=== PATIENT | female | born 1945 | race Native Hawaiian/Other Pacific Islander ===

== ENCOUNTER 2016-10-04 14:45 | Outpatient (CLI) | payer OTHER ==
[~2016-10-04 14:45] MED LIST: ALBU90AE13 INH; ALPR0.2566 PO; APRODINE1 TAB PO; ASPIRIN CHLD81 MG PO; ATEN25TA21 PO; BLACK COHOSH540 MG PO; CELEXA20 MG PO; CETI10TA PO; COZAAR25 MG PO; GABA100C2 PO; MECLIZINE25 MG PO; VITAMIN D31000 UNIT PO
== END 2016-10-04 15:45 | disposition home or self-care (01) ==
LOC: RESP 14:45
DX: R06.09 Other forms of dyspnea (principal)
CPT/HCPCS: 94640; 94664

== ENCOUNTER 2016-10-22 15:03 | Emergency (ER) | payer OTHER ==
[~2016-10-22] VITALS: Ht 172.7 cm; Wt 93.0 kg
[2016-10-22 15:20] VITALS: BP 125/59; TEMP 98.4
== END 2016-10-22 17:25 | disposition home or self-care (01) ==
LOC: ED 15:03
DX: S80.12XA Contusion of left lower leg, initial encounter (principal); S80.02XA Contusion of left knee, initial encounter; S90.02XA Contusion of left ankle, initial encounter; W18.39XA Other fall on same level, initial encounter; Y92.098 Other place in other non-institutional residence as the place of occurrence of the external cause
CPT/HCPCS: 99283

== ENCOUNTER 2016-11-21 08:45 | Observation (INO) | payer OTHER ==
[~2016-11-21] VITALS: Ht 172.7 cm; Wt 92.2 kg
[2016-11-21] VITALS (7 sets, daily range): BP systolic 124–161; BP diastolic 62–88; TEMP 98–98.5; Ht 172.7 cm; Wt 92.2 kg
[2016-11-21] MEDS ORDERED: ANORO ELLIPTA 61 AER IN (09:04)
[2016-11-21 09:25] LABS: PLATELET COUNT 124 K/uL (152-353)
[2016-11-21 09:39] LABS: POTASSIUM 4.5 mmol/L (3.6-5.2); SODIUM 135 mmol/L (136-145)
[2016-11-22 00:18] VITALS: BP 151/85; TEMP 98.2
[2016-11-22 04:00] VITALS: BP 148/78; TEMP 97.6
[2016-11-22 08:03] VITALS: BP 142/70; TEMP 97.7
[2016-11-22 09:08] LABS: PLATELET COUNT 107 K/uL (152-353)
[2016-11-22 09:26] LABS: POTASSIUM 4.6 mmol/L (3.6-5.2)
[2016-11-22 12:00] VITALS: BP 148/74; TEMP 98.7
[2016-11-22 16:00] VITALS: BP 148/74; TEMP 98.7
[2016-11-22 19:54] VITALS: BP 148/78; TEMP 98.7
[2016-11-23] VITALS: BP 175/84; TEMP 98.2
[2016-11-23 04:00] VITALS: BP 164/78; TEMP 97.8
[2016-11-23 05:03] LABS: PLATELET COUNT 110 K/uL (152-353)
[2016-11-23 05:07] LABS: POTASSIUM 5.1 mmol/L (3.6-5.2)
[2016-11-23 07:25] VITALS: BP 171/85; TEMP 97.7
[2016-11-23 11:34] VITALS: BP 127/72; TEMP 98.2
== END 2016-11-23 12:35 | disposition home or self-care (01) ==
LOC: ED 08:45 → MED/SURG 10:55
PROVIDERS: Emergency Medicine; ADMIT Emergency Medicine
DX: J44.1 Chronic obstructive pulmonary disease with (acute) exacerbation (principal); D72.828 Other elevated white blood cell count; R06.09 Other forms of dyspnea
CPT/HCPCS: 36415; 36600; 80053; 82550; 82805; 83735; 83880; 84484; 85027; 87040; 87804; 93005; 94640; 94664; 94760; 96365; 96366; 96367; 96372; 96374; 96375; 99220; 99284; G0378; J1650; J1956; J2930; J3475

== ENCOUNTER 2016-12-12 12:04 | Emergency (ER) | payer OTHER ==
[~2016-12-12] VITALS: Ht 172.7 cm; Wt 98.9 kg
[~2016-12-12 12:04] MED LIST changes: +ANORO ELLIPTA 61 AER IN
[2016-12-12 13:29] LABS: PLATELET COUNT 92 K/uL (152-353)
[2016-12-12 13:37] LABS: POTASSIUM 4.8 mmol/L (3.6-5.2)
[2016-12-12 20:09] VITALS: BP 130/70; TEMP 98.1
== END 2016-12-12 19:42 | disposition short-term general hospital (02) ==
LOC: ED 12:04
PROVIDERS: Emergency Medicine
PROC: 0T9B70Z Drainage of Bladder with Drainage Device, Via Natural or Artificial Opening (ICD-10-PCS; principal; 2016-12-12)
DX: S72.142A Displaced intertrochanteric fracture of left femur, initial encounter for closed fracture (principal); W18.39XA Other fall on same level, initial encounter; Y92.098 Other place in other non-institutional residence as the place of occurrence of the external cause
CPT/HCPCS: 36415; 51702; 80053; 81000; 85027; 96360; 96376; 99284; J1170; J2405

== ENCOUNTER 2017-01-22 11:34 | Emergency (ER) | payer OTHER ==
[~2017-01-22] VITALS: Ht 172.7 cm; Wt 95.3 kg
[2017-01-22 11:37] VITALS: TEMP 97.6
[2017-01-22] MEDS ORDERED: NEURONTIN 100M100 MG OR (12:02)
[2017-01-22] MEDS ORDERED: ELIQUIS2.5 MG OR (12:03)
[2017-01-22 14:14] VITALS: BP 102/50
== END 2017-01-22 14:14 | disposition short-term general hospital (02) ==
LOC: ED 11:34
DX: S82.844A Nondisplaced bimalleolar fracture of right lower leg, initial encounter for closed fracture (principal); W17.89XA Other fall from one level to another, initial encounter; Y92.098 Other place in other non-institutional residence as the place of occurrence of the external cause
CPT/HCPCS: 99284

== ENCOUNTER 2017-01-22 14:21 | Outpatient (CLI) | payer OTHER ==
[~2017-01-22 14:21] MED LIST changes: +ELIQUIS2.5 MG OR; +NEURONTIN 100M100 MG OR
== END 2017-01-22 14:55 | disposition short-term general hospital (02) ==
LOC: AMB 14:21
DX: S82.844A Nondisplaced bimalleolar fracture of right lower leg, initial encounter for closed fracture (principal); W17.89XA Other fall from one level to another, initial encounter; Y92.098 Other place in other non-institutional residence as the place of occurrence of the external cause
CPT/HCPCS: A0425; A0429

== ENCOUNTER 2017-06-28 08:52 | Outpatient (CLI) | payer OTHER ==
[2017-06-28 09:26] LABS: POTASSIUM 5.2 mmol/L (3.6-5.2)
== END 2017-06-28 09:55 | disposition home or self-care (01) ==
LOC: LABW 08:52
PROVIDERS: Internal Medicine Cardiovascular Disease
DX: I25.89 Other forms of chronic ischemic heart disease (principal); R06.09 Other forms of dyspnea
CPT/HCPCS: 36415; 80048; 83880

== ENCOUNTER 2017-07-19 10:04 | Emergency (ER) | payer OTHER ==
[~2017-07-19] VITALS: Ht 172.7 cm; Wt 93.9 kg
[2017-07-19 12:10] VITALS: BP 134/69; TEMP 97.9
== END 2017-07-19 12:10 | disposition home or self-care (01) ==
LOC: ED 10:04
DX: J44.1 Chronic obstructive pulmonary disease with (acute) exacerbation (principal)
CPT/HCPCS: 94664; 99283

== ENCOUNTER 2017-09-10 09:40 | Outpatient (CLI) | payer OTHER | END 2017-09-10 19:16 | disposition home or self-care (01) | LOC: MAMMO 09:40 | DX: Z12.31 Encounter for screening mammogram for malignant neoplasm of breast (principal) ==

== ENCOUNTER → 2018-02-17 09:47 | Outpatient (CLI) | payer OTHER ==
[~2018-02-17 09:47] MED LIST changes: +ASPIRIN LOW DOS81 M1 PO; +DOCU100C10 PO; +LISI10TA11 PO; -NEURONTIN 100M100 MG OR; +NEURONTIN 100M100 MG PO; +VITAMIN D32000 UNI1 PO; +ZINC40OI11 TOP
== END | disposition short-term general hospital (02) ==
LOC: AMB 09:47
DX: R41.82 Altered mental status, unspecified (principal)
CPT/HCPCS: A0425; A0429

== ENCOUNTER 2018-02-17 09:55 | Inpatient (IN) | payer OTHER ==
[2018-02-17] VITALS (13 sets, daily range): BP systolic 118–187; BP diastolic 58–98; TEMP 97–99.6; Ht 172.7 cm; Wt 83.7 kg
[~2018-02-17] VITALS: Ht 172.7 cm; Wt 83.7 kg
[2018-02-17 10:38] LABS: PLATELET COUNT 148 K/uL (152-353)
[2018-02-17 11:02] LABS: POTASSIUM 3.1 mmol/L (3.6-5.2)
[2018-02-17 11:06] LABS: PARTIAL THROMBOPLASTIN TIME 25.9 SECONDS (24.5-33.6)
[2018-02-18] VITALS (24 sets, daily range): BP systolic 116–180; BP diastolic 8–103; TEMP 98.3–99.9
[2018-02-18 06:48] LABS: POTASSIUM 3.1 mmol/L (3.6-5.2)
[2018-02-18 07:08] LABS: PLATELET COUNT 161 K/uL (152-353)
[2018-02-19] VITALS (23 sets, daily range): BP systolic 113–169; BP diastolic 51–91; TEMP 98–99.2
[2018-02-19 05:03] LABS: PLATELET COUNT 151 K/uL (152-353)
[2018-02-19 05:19] LABS: POTASSIUM 3.7 mmol/L (3.6-5.2)
[2018-02-20] VITALS (22 sets, daily range): BP systolic 109–194; BP diastolic 53–95; TEMP 98.5–99.9
[2018-02-20 10:29] LABS: PLATELET COUNT 168 K/uL (152-353)
[2018-02-21] VITALS (25 sets, daily range): BP systolic 86–157; BP diastolic 45–88; TEMP 98–100.1
[2018-02-21 08:11] LABS: POTASSIUM 4.3 mmol/L (3.6-5.2)
[2018-02-21 09:14] LABS: PLATELET COUNT 203 K/uL (152-353)
[2018-02-22] VITALS (22 sets, daily range): BP systolic 100–143; BP diastolic 53–79; TEMP 98.7–99.1
[2018-02-22 07:51] LABS: PLATELET COUNT 214 K/uL (152-353)
[2018-02-22 08:29] LABS: POTASSIUM 4.3 mmol/L (3.6-5.2)
[2018-02-23] VITALS (24 sets, daily range): BP systolic 15–164; BP diastolic 50–92; TEMP 98.4–99.5
[2018-02-23 09:03] LABS: PLATELET COUNT 303 K/uL (152-353)
[2018-02-23 09:15] LABS: POTASSIUM 4.8 mmol/L (3.6-5.2)
[2018-02-24] VITALS (25 sets, daily range): BP systolic 92–148; BP diastolic 54–97; TEMP 98.3–98.8
[2018-02-24 06:16] LABS: PLATELET COUNT 296 K/uL (152-353)
[2018-02-24 06:33] LABS: POTASSIUM 4.2 mmol/L (3.6-5.2)
[2018-02-25] VITALS (21 sets, daily range): BP systolic 100–140; BP diastolic 58–81; TEMP 97.6–98.4
[2018-02-25 05:38] LABS: PLATELET COUNT 301 K/uL (152-353)
[2018-02-25 05:59] LABS: POTASSIUM 4.4 mmol/L (3.6-5.2)
[2018-02-26] VITALS (12 sets, daily range): BP systolic 110–138; BP diastolic 55–71; TEMP 98.2–99.4
[2018-02-26 07:04] LABS: PLATELET COUNT 337 K/uL (152-353)
[2018-02-26 08:57] LABS: POTASSIUM 4.1 mmol/L (3.6-5.2)
[2018-02-27] VITALS: BP 120/63; TEMP 98.6
== END 2018-02-27 15:15 | DRG 64 ==
LOC: ED 09:55 → ICU 13:25 → MED/SURG 02-26 18:30
PROVIDERS: Emergency Medicine
DX: I63.531 Cerebral infarction due to unspecified occlusion or stenosis of right posterior cerebral artery (principal); J96.00 Acute respiratory failure, unspecified whether with hypoxia or hypercapnia; N39.0 Urinary tract infection, site not specified; E87.1 Hypo-osmolality and hyponatremia; S82.291A Other fracture of shaft of right tibia, initial encounter for closed fracture; I12.9 Hypertensive chronic kidney disease with stage 1 through stage 4 chronic kidney disease, or unspecified chronic kidney disease; N18.2 Chronic kidney disease, stage 2 (mild); K21.9 Gastro-esophageal reflux disease without esophagitis; J44.9 Chronic obstructive pulmonary disease, unspecified
CPT/HCPCS: 36415; 36600; 51702; 80053; 81000; 82272; 82805; 82962; 83735; 84484; 85027; 85379; 85610; 85730; 87088; 93005; 94640; 94664; 94760; 96365; 96366; 96372; 99285; J0132; J0696; J1650; J2060; J3490

== ENCOUNTER 2018-02-27 15:07 | Inpatient (IN) | payer OTHER ==
[2018-02-28 05:01] LABS: PLATELET COUNT 268 K/uL (152-353)
[2018-02-28 05:14] LABS: POTASSIUM 4.7 mmol/L (3.6-5.2)
== END 2018-03-01 08:55 | disposition still patient (30) ==
LOC: PAVB 15:07
PROVIDERS: ADMIT Internal Medicine
DX: I63.531 Cerebral infarction due to unspecified occlusion or stenosis of right posterior cerebral artery (principal); J96.21 Acute and chronic respiratory failure with hypoxia; M62.81 Muscle weakness (generalized); R26.89 Other abnormalities of gait and mobility; R13.11 Dysphagia, oral phase; R48.9 Unspecified symbolic dysfunctions; S82.101A Unspecified fracture of upper end of right tibia, initial encounter for closed fracture; R26.81 Unsteadiness on feet; J44.9 Chronic obstructive pulmonary disease, unspecified; S82.401A Unspecified fracture of shaft of right fibula, initial encounter for closed fracture
CPT/HCPCS: 80053; 81000; 82306; 85027; 87081; 87088

== ENCOUNTER 2018-03-01 09:49 | Inpatient (IN) | payer OTHER | END 2018-03-31 15:01 | disposition still patient (30) | LOC: PAVB 09:49 | PROVIDERS: ADMIT Internal Medicine | DX: I63.531 Cerebral infarction due to unspecified occlusion or stenosis of right posterior cerebral artery (principal); S82.401A Unspecified fracture of shaft of right fibula, initial encounter for closed fracture; S82.101A Unspecified fracture of upper end of right tibia, initial encounter for closed fracture; M62.81 Muscle weakness (generalized); R13.11 Dysphagia, oral phase; R26.81 Unsteadiness on feet; R26.89 Other abnormalities of gait and mobility; I10 Essential (primary) hypertension; J44.9 Chronic obstructive pulmonary disease, unspecified | CPT/HCPCS: 36415; 81000; 85610 ==

== ENCOUNTER 2018-03-01 10:47 | Outpatient (CLI) | payer OTHER | END 2018-03-01 19:25 | disposition home or self-care (01) | LOC: RAD 10:47 | DX: R53.83 Other fatigue (principal); Z86.73 Personal history of transient ischemic attack (TIA), and cerebral infarction without residual deficits ==

== ENCOUNTER 2018-03-31 15:49 | Inpatient (IN) | payer OTHER | END 2018-05-01 08:00 | disposition still patient (30) | LOC: PAVB 15:49 | PROVIDERS: ADMIT Internal Medicine | DX: I63.531 Cerebral infarction due to unspecified occlusion or stenosis of right posterior cerebral artery (principal); S82.401A Unspecified fracture of shaft of right fibula, initial encounter for closed fracture; S82.101A Unspecified fracture of upper end of right tibia, initial encounter for closed fracture; M62.81 Muscle weakness (generalized); R13.11 Dysphagia, oral phase; R26.81 Unsteadiness on feet; R26.89 Other abnormalities of gait and mobility; I10 Essential (primary) hypertension; J44.9 Chronic obstructive pulmonary disease, unspecified | CPT/HCPCS: 85610; 87070; 87077; 87185; 87186 ==

== ENCOUNTER 2018-05-01 09:00 | Inpatient (IN) | payer OTHER | END 2018-06-01 10:20 | disposition still patient (30) | LOC: PAVB 09:00 | PROVIDERS: ADMIT Internal Medicine | DX: I63.531 Cerebral infarction due to unspecified occlusion or stenosis of right posterior cerebral artery (principal); S82.401A Unspecified fracture of shaft of right fibula, initial encounter for closed fracture; S82.101A Unspecified fracture of upper end of right tibia, initial encounter for closed fracture; M62.81 Muscle weakness (generalized); R13.11 Dysphagia, oral phase; R26.81 Unsteadiness on feet; R26.89 Other abnormalities of gait and mobility; I10 Essential (primary) hypertension; J44.9 Chronic obstructive pulmonary disease, unspecified | CPT/HCPCS: 85610 ==

== ENCOUNTER 2018-05-08 21:32 | Outpatient (CLI) | payer OTHER | END 2018-05-08 22:42 | disposition home or self-care (01) | LOC: LAB 21:32 | DX: N39.0 Urinary tract infection, site not specified (principal) | CPT/HCPCS: 81000; 87077; 87086; 87088; 87186 ==

== ENCOUNTER 2018-05-26 16:13 | Outpatient (CLI) | payer OTHER | END 2018-05-26 19:14 | disposition home or self-care (01) | LOC: RAD 16:13 | DX: M79.671 Pain in right foot (principal) ==

== ENCOUNTER 2018-05-27 06:31 | Outpatient (CLI) | payer OTHER | END 2018-05-27 20:36 | disposition home or self-care (01) | LOC: LAB 06:31 | DX: N39.0 Urinary tract infection, site not specified (principal) | CPT/HCPCS: 81000; 87077; 87086; 87088; 87186 ==

== ENCOUNTER 2018-06-01 10:28 | Inpatient (IN) | payer OTHER | END 2018-07-01 09:36 | disposition still patient (30) | LOC: PAVB 10:28 | PROVIDERS: ADMIT Internal Medicine ==

== ENCOUNTER 2018-06-03 07:52 | Outpatient (CLI) | payer OTHER | END 2018-06-03 19:13 | disposition home or self-care (01) | LOC: LAB 07:52 | DX: Z79.899 Other long term (current) drug therapy (principal); Z79.01 Long term (current) use of anticoagulants | CPT/HCPCS: 85610 ==

== ENCOUNTER 2018-07-01 12:19 | Inpatient (IN) | payer OTHER | END 2018-08-01 08:50 | disposition still patient (30) | LOC: PAVB 12:19 | PROVIDERS: ADMIT Internal Medicine ==

== ENCOUNTER 2018-07-04 05:45 | Outpatient (CLI) | payer OTHER | END 2018-07-04 20:30 | disposition home or self-care (01) | LOC: LAB 05:45 | DX: Z79.899 Other long term (current) drug therapy (principal); R79.1 Abnormal coagulation profile | CPT/HCPCS: 36415; 85610 ==

== ENCOUNTER 2018-07-19 07:26 | Outpatient (CLI) | payer OTHER ==
[2018-07-19 10:13] LABS: PLATELET COUNT 174 K/uL (152-353)
[2018-07-19 10:21] LABS: POTASSIUM 4.7 mmol/L (3.6-5.2)
== END 2018-07-19 20:13 | disposition home or self-care (01) ==
LOC: LAB 07:26
PROVIDERS: Internal Medicine
DX: D53.9 Nutritional anemia, unspecified (principal); N18.9 Chronic kidney disease, unspecified
CPT/HCPCS: 36415; 80048; 82607; 82746; 82747; 85027

== ENCOUNTER 2018-08-01 09:13 | Inpatient (IN) | payer OTHER ==
[2018-08-11] MEDS ORDERED: CEFD300C2 PO (03:55)
[2018-08-11] MEDS ORDERED: ALBUSOL INH (03:56)
[2018-08-11] MEDS ORDERED: [UNRECOGNIZED DRUG - OTHER] PO (03:58)
[2018-08-11] MEDS ORDERED: OMEP40CA PO (04:01)
[2018-08-11] MEDS ORDERED: MULTIVITAMI1 PO (04:07)
[2018-08-11] MEDS ORDERED: PANTOPRAZOLE 40MG TA PO (04:10)
[2018-08-11] MEDS ORDERED: ASCO500T18 PO (04:12)
[2018-08-11] MEDS ORDERED: VITAMIN D2000 UNI1 PO (04:14)
[2018-08-11] MEDS ORDERED: WARF2TAB7 PO (04:15)
[2018-08-11] MEDS ORDERED: CLARITIN10 M1 PO (04:17)
[2018-08-11] MEDS ORDERED: PAIN/FEVER120 MG RE (04:19)
[2018-08-11] MEDS ORDERED: ONDA4TAB3 PO (04:20)
[2018-08-11] MEDS ORDERED: PROAIR HFA INH (04:25)
[2018-08-11] MEDS ORDERED: TRAM50TA PO (04:26)
[2018-08-11] MEDS ORDERED: GAS-X PO (04:30)
[2018-08-11] MEDS ORDERED: MECLIZINE 2525 MG PO (04:32)
== END 2018-08-31 08:35 | disposition still patient (30) ==
LOC: PAVB 09:13
PROVIDERS: ADMIT Internal Medicine
CPT/HCPCS: 93005

== ENCOUNTER 2018-08-03 08:06 | Outpatient (CLI) | payer OTHER | END 2018-08-03 19:28 | disposition home or self-care (01) | LOC: LAB 08:06 | DX: R82.90 Unspecified abnormal findings in urine (principal); R35.0 Frequency of micturition | CPT/HCPCS: 81000; 87077; 87086; 87088; 87186 ==

== ENCOUNTER 2018-08-05 06:52 | Outpatient (CLI) | payer OTHER ==
[2018-08-05 08:44] LABS: PLATELET COUNT 142 K/uL (152-353)
[2018-08-05 08:58] LABS: POTASSIUM 5.5 mmol/L (3.6-5.2)
== END 2018-08-05 19:17 | disposition home or self-care (01) ==
LOC: LAB 06:52
PROVIDERS: Internal Medicine
DX: N39.0 Urinary tract infection, site not specified (principal); R79.1 Abnormal coagulation profile; Z79.899 Other long term (current) drug therapy
CPT/HCPCS: 80053; 82306; 85027; 85610

== ENCOUNTER 2018-08-08 10:43 | Outpatient (CLI) | payer OTHER | END 2018-08-08 20:13 | disposition home or self-care (01) | LOC: RAD 10:43 | DX: M19.90 Unspecified osteoarthritis, unspecified site (principal); Z78.0 Asymptomatic menopausal state; R50.9 Fever, unspecified ==

== ENCOUNTER 2018-08-09 00:03 | Outpatient (CLI) | payer OTHER ==
[2018-08-09 00:39] LABS: PLATELET COUNT 220 K/uL (152-353)
[2018-08-09 00:50] LABS: POTASSIUM 4.7 mmol/L (3.6-5.2)
== END 2018-08-09 19:44 | disposition home or self-care (01) ==
LOC: LAB 00:03
PROVIDERS: Internal Medicine
DX: R53.1 Weakness (principal); G25.0 Essential tremor; M54.5 Low back pain
CPT/HCPCS: 80053; 85027

== ENCOUNTER 2018-08-09 10:20 | Outpatient (CLI) | payer OTHER | END 2018-08-09 19:48 | disposition home or self-care (01) | LOC: RAD 10:20 | DX: K31.89 Other diseases of stomach and duodenum (principal) | CPT/HCPCS: 74022 ==

== ENCOUNTER 2018-08-10 15:01 | Inpatient (IN) | payer OTHER ==
[~2018-08-10] VITALS: Ht 172.7 cm; Wt 85.4 kg
[2018-08-10] VITALS (7 sets, daily range): BP systolic 108–126; BP diastolic 51–66; TEMP 97.7
[2018-08-10 16:23] LABS: PLATELET COUNT 231 K/uL (152-353)
[2018-08-10 16:33] LABS: POTASSIUM 4.4 mmol/L (3.6-5.2); SODIUM 139 mmol/L (136-145)
--- NOTE | 2018-08-10 21:43 | NUR ---
RECEIVED FROM ER VIA STRETCHER. ALERT AND ORIENTED X3. DAUGHTER AT BEDSIDE. EDUCATION GIVEN REGARDING CALL LIGHT AND BED CONTROLS. INSTRUCTED TO KEEP BED IN LOW POSITION. PATIENT VERBALIZED UNDERSTANDING. 20G SALINE LOCK TO LAC INTACT. SEE ASSESSMENT FOR FURTHER DETAILS.
[2018-08-11 01:13] VITALS: BP 110/56; TEMP 98.1; Ht 172.7 cm; Wt 85.4 kg
[2018-08-11] MEDS ORDERED: CEFD300C2 PO (03:55)
[2018-08-11] MEDS ORDERED: ALBUSOL INH (03:56)
[2018-08-11] MEDS ORDERED: [UNRECOGNIZED DRUG - OTHER] PO (03:58)
[2018-08-11] MEDS ORDERED: OMEP40CA PO (04:01)
[2018-08-11] MEDS ORDERED: MULTIVITAMI1 PO (04:07)
[2018-08-11] MEDS ORDERED: PANTOPRAZOLE 40MG TA PO (04:10)
[2018-08-11] MEDS ORDERED: ASCO500T18 PO (04:12)
[2018-08-11 04:14] VITALS: BP 115/66; TEMP 98.3
[2018-08-11] MEDS ORDERED: VITAMIN D2000 UNI1 PO (04:14)
[2018-08-11] MEDS ORDERED: WARF2TAB7 PO (04:15)
[2018-08-11] MEDS ORDERED: CLARITIN10 M1 PO (04:17)
[2018-08-11] MEDS ORDERED: PAIN/FEVER120 MG RE (04:19)
[2018-08-11] MEDS ORDERED: ONDA4TAB3 PO (04:20)
[2018-08-11] MEDS ORDERED: PROAIR HFA INH (04:25)
[2018-08-11] MEDS ORDERED: TRAM50TA PO (04:26)
[2018-08-11] MEDS ORDERED: GAS-X PO (04:30)
[2018-08-11] MEDS ORDERED: MECLIZINE 2525 MG PO (04:32)
[2018-08-11 08:03] VITALS: BP 123/52; TEMP 98.9
[2018-08-11 16:03] VITALS: BP 119/74; TEMP 98.2
[2018-08-11 20:21] VITALS: BP 137/56; TEMP 98.4
[2018-08-12] VITALS: BP 126/69; TEMP 98.6
[2018-08-12 04:00] VITALS: BP 145/70; TEMP 98.8
[2018-08-12 06:06] LABS: PLATELET COUNT 251 K/uL (152-353)
[2018-08-12 06:39] LABS: POTASSIUM 4.3 mmol/L (3.6-5.2)
[2018-08-12 08:00] VITALS: BP 135/77; TEMP 98.2
[2018-08-12 12:00] VITALS: BP 144/84; TEMP 98.5
[2018-08-12 16:00] VITALS: BP 135/72; TEMP 98.4
[2018-08-12 20:00] VITALS: BP 127/64; TEMP 98.5
[2018-08-13] VITALS: BP 131/66; TEMP 98.8
[2018-08-13 04:00] VITALS: BP 129/68; TEMP 98.6
[2018-08-13 08:00] VITALS: BP 140/78; TEMP 97.5
== END 2018-08-13 16:45 | DRG 189 ==
LOC: ED 15:01 → MED/SURG 17:35
PROVIDERS: Internal Medicine; ADMIT Family Medicine
DX: J96.01 Acute respiratory failure with hypoxia (principal); J44.0 Chronic obstructive pulmonary disease with (acute) lower respiratory infection; J44.1 Chronic obstructive pulmonary disease with (acute) exacerbation; F02.81 Dementia in other diseases classified elsewhere, unspecified severity, with behavioral disturbance; N39.0 Urinary tract infection, site not specified; J20.9 Acute bronchitis, unspecified; G30.8 Other Alzheimer's disease; D53.9 Nutritional anemia, unspecified
CPT/HCPCS: 36415; 80048; 80053; 82550; 82553; 83880; 84484; 85027; 93005; 94640; 94664; 94760; 96365; 99284; J0456; J0696; J2930

== ENCOUNTER 2018-08-31 08:44 | Inpatient (IN) | payer OTHER ==
[~2018-08-31 08:44] MED LIST changes: +ALBUSOL INH; +ASCO500T18 PO; +CEFD300C2 PO; +CLARITIN10 M1 PO; +GAS-X PO; +MECLIZINE 2525 MG PO; +MULTIVITAMI1 PO; +OMEP40CA PO; +ONDA4TAB3 PO; +PAIN/FEVER120 MG RE; +PANTOPRAZOLE 40MG TA PO; +PROAIR HFA INH; +TRAM50TA PO; +VITAMIN D2000 UNI1 PO; +WARF2TAB7 PO; +[UNRECOGNIZED DRUG - OTHER] PO
== END 2018-10-01 11:07 | disposition still patient (30) ==
LOC: PAVB 08:44
PROVIDERS: ADMIT Internal Medicine

== ENCOUNTER 2018-09-02 06:41 | Outpatient (CLI) | payer OTHER | END 2018-09-02 20:26 | disposition home or self-care (01) | LOC: LAB 06:41 | DX: Z79.899 Other long term (current) drug therapy (principal); R79.1 Abnormal coagulation profile | CPT/HCPCS: 85610 ==

== ENCOUNTER 2018-09-03 14:11 | Outpatient (CLI) | payer OTHER ==
[2018-09-03 14:38] LABS: PLATELET COUNT 245 K/uL (152-353)
[2018-09-03 14:47] LABS: POTASSIUM 4.3 mmol/L (3.6-5.2)
== END 2018-09-03 21:31 | disposition home or self-care (01) ==
LOC: LAB 14:11
PROVIDERS: Internal Medicine
DX: R50.9 Fever, unspecified (principal); R05 Cough
CPT/HCPCS: 80048; 85027

== ENCOUNTER 2018-10-01 11:35 | Inpatient (IN) | payer OTHER | END 2018-11-01 10:55 | disposition still patient (30) | LOC: PAVB 11:35 | PROVIDERS: ADMIT Internal Medicine ==

== ENCOUNTER 2018-10-02 06:29 | Outpatient (CLI) | payer OTHER | END 2018-10-02 21:31 | disposition home or self-care (01) | LOC: LAB 06:29 | DX: Z79.899 Other long term (current) drug therapy (principal); R79.1 Abnormal coagulation profile | CPT/HCPCS: 85610 ==

== ENCOUNTER 2018-11-01 11:20 | Inpatient (IN) | payer OTHER | END 2018-11-29 10:20 | disposition still patient (30) | LOC: PAVB 11:20 | PROVIDERS: ADMIT Internal Medicine ==

== ENCOUNTER 2018-11-04 08:56 | Outpatient (CLI) | payer OTHER | END 2018-11-04 20:48 | disposition home or self-care (01) | LOC: LAB 08:56 | DX: Z79.01 Long term (current) use of anticoagulants (principal); Z51.81 Encounter for therapeutic drug level monitoring | CPT/HCPCS: 36415; 85610 ==

== ENCOUNTER 2018-11-29 11:17 | Inpatient (IN) | payer OTHER | END 2018-12-30 10:40 | disposition still patient (30) | LOC: PAVB 11:17 | PROVIDERS: ADMIT Internal Medicine ==

== ENCOUNTER 2018-12-02 06:52 | Outpatient (CLI) | payer OTHER | END 2018-12-02 21:44 | disposition other institution (70) | LOC: LAB 06:52 | DX: Z79.899 Other long term (current) drug therapy (principal); Z79.01 Long term (current) use of anticoagulants | CPT/HCPCS: 85610 ==

== ENCOUNTER 2018-12-05 17:51 | Outpatient (CLI) | payer OTHER | END 2018-12-05 20:00 | disposition home or self-care (01) | LOC: RAD 17:51 | DX: M25.531 Pain in right wrist (principal); M25.511 Pain in right shoulder ==

== ENCOUNTER 2018-12-30 11:28 | Inpatient (IN) | payer OTHER | END 2019-01-29 11:18 | disposition still patient (30) | LOC: PAVB 11:28 | PROVIDERS: ADMIT Internal Medicine ==

== ENCOUNTER 2019-01-01 06:44 | Outpatient (CLI) | payer OTHER | END 2019-01-01 19:40 | disposition home or self-care (01) | LOC: LAB 06:44 | DX: Z79.899 Other long term (current) drug therapy (principal); R79.1 Abnormal coagulation profile | CPT/HCPCS: 36415; 85610 ==

== ENCOUNTER 2019-01-12 11:48 | Emergency (ER) | payer OTHER ==
[~2019-01-12] VITALS: Ht 172.7 cm; Wt 85.3 kg
[2019-01-12 11:55] VITALS: TEMP 97.3
[2019-01-12 12:30] LABS: PLATELET COUNT 197 K/uL (152-353)
[2019-01-12 12:40] LABS: POTASSIUM 5.9 mmol/L (3.6-5.2)
[2019-01-12 18:04] VITALS: BP 102/53
== END 2019-01-12 18:54 | disposition short-term general hospital (02) ==
LOC: ED 11:48
PROVIDERS: Family Medicine
DX: K56.600 Partial intestinal obstruction, unspecified as to cause (principal); R11.2 Nausea with vomiting, unspecified; N28.89 Other specified disorders of kidney and ureter; Z93.3 Colostomy status
CPT/HCPCS: 80053; 81000; 85027; 87086; 87088; 96360; 96375; 96376; 99284; J2405; J2550

== ENCOUNTER 2019-01-29 12:30 | Inpatient (IN) | payer OTHER | END 2019-03-01 08:39 | disposition still patient (30) | LOC: PAVB 12:30 | PROVIDERS: ADMIT Internal Medicine | DX: Z51.89 Encounter for other specified aftercare (principal) | CPT/HCPCS: 80053; 82306; 85027; 85610 ==

== ENCOUNTER 2019-01-30 06:23 | Outpatient (CLI) | payer OTHER ==
[2019-01-30 07:00] LABS: PLATELET COUNT 201 K/uL (152-353)
[2019-01-30 08:03] LABS: POTASSIUM 4.8 mmol/L (3.6-5.2)
== END 2019-01-30 19:46 | disposition home or self-care (01) ==
LOC: LAB 06:23
PROVIDERS: Internal Medicine
DX: I10 Essential (primary) hypertension (principal); Z79.899 Other long term (current) drug therapy; I63.89 Other cerebral infarction
CPT/HCPCS: 80053; 82306; 85027; 85610

== ENCOUNTER 2019-01-31 07:05 | Outpatient (CLI) | payer OTHER ==
[~2019-01-31] VITALS: Ht 172.7 cm; Wt 90.3 kg
== END 2019-02-01 17:30 | disposition home or self-care (01) ==
LOC: INF 07:05 → MED/SURG 07:05 → EDSTATUS 13:21 → INF 19:57
PROC: 30233N1 Transfusion of Nonautologous Red Blood Cells into Peripheral Vein, Percutaneous Approach (ICD-10-PCS; principal; 2019-01-31)
PROC: 30233N1 Transfusion of Nonautologous Red Blood Cells into Peripheral Vein, Percutaneous Approach (ICD-10-PCS; 2019-02-01)
DX: D64.9 Anemia, unspecified (principal)
CPT/HCPCS: 36430; 86850; 86900; 86901; 86922; 96374; 96376; J1940; P9016

== ENCOUNTER 2019-02-01 23:13 | Outpatient (CLI) | payer OTHER | END 2019-02-01 23:55 | disposition home or self-care (01) | LOC: LAB 23:13 | DX: E87.71 Transfusion associated circulatory overload (principal) | CPT/HCPCS: 85014; 85018 ==

== ENCOUNTER 2019-03-01 09:35 | Inpatient (IN) | payer OTHER | END 2019-03-31 09:38 | disposition still patient (30) | LOC: PAVB 09:35 | PROVIDERS: ADMIT Internal Medicine ==

== ENCOUNTER 2019-03-04 05:11 | Outpatient (CLI) | payer OTHER | END 2019-03-04 19:12 | disposition home or self-care (01) | LOC: LAB 05:11 | DX: Z51.81 Encounter for therapeutic drug level monitoring (principal) | CPT/HCPCS: 85610 ==

== ENCOUNTER 2019-03-10 06:12 | Outpatient (CLI) | payer OTHER | END 2019-03-10 19:15 | disposition home or self-care (01) | LOC: LAB 06:12 | DX: R25.2 Cramp and spasm (principal) | CPT/HCPCS: 84132 ==

== ENCOUNTER 2019-03-31 11:31 | Inpatient (IN) | payer OTHER | END 2019-05-01 10:36 | disposition still patient (30) | LOC: PAVB 11:31 | PROVIDERS: ADMIT Internal Medicine ==

== ENCOUNTER 2019-04-01 05:30 | Outpatient (CLI) | payer OTHER | END 2019-04-01 19:07 | disposition home or self-care (01) | LOC: LAB 05:30 | DX: Z51.81 Encounter for therapeutic drug level monitoring (principal) | CPT/HCPCS: 85610 ==

== ENCOUNTER 2019-04-10 05:15 | Outpatient (CLI) | payer OTHER ==
[2019-04-10 06:37] LABS: PLATELET COUNT 145 K/uL (152-353)
[2019-04-10 06:49] LABS: POTASSIUM 4.5 mmol/L (3.6-5.2)
[2019-04-10 06:54] LABS: PARTIAL THROMBOPLASTIN TIME 25.2 SECONDS (24.5-33.6)
== END 2019-04-10 23:41 | disposition home or self-care (01) ==
LOC: LAB 05:15
PROVIDERS: Internal Medicine
DX: Z01.818 Encounter for other preprocedural examination (principal); Z51.81 Encounter for therapeutic drug level monitoring
CPT/HCPCS: 36415; 80053; 85027; 85610; 85730

== ENCOUNTER 2019-04-21 06:19 | Outpatient (CLI) | payer OTHER | END 2019-04-21 21:37 | disposition home or self-care (01) | LOC: LAB 06:19 | DX: Z51.81 Encounter for therapeutic drug level monitoring (principal) | CPT/HCPCS: 36415; 85610 ==

== ENCOUNTER 2019-05-01 11:24 | Inpatient (IN) | payer OTHER | END 2019-06-01 16:27 | disposition still patient (30) | LOC: PAVB 11:24 | PROVIDERS: ADMIT Internal Medicine ==

== ENCOUNTER 2019-05-02 07:28 | Outpatient (CLI) | payer OTHER | END 2019-05-02 21:36 | disposition home or self-care (01) | LOC: LAB 07:28 | DX: Z51.81 Encounter for therapeutic drug level monitoring (principal) | CPT/HCPCS: 36415; 85610 ==

== ENCOUNTER 2019-06-01 17:13 | Inpatient (IN) | payer OTHER | END 2019-07-01 09:22 | disposition still patient (30) | LOC: PAVB 17:13 | PROVIDERS: ADMIT Internal Medicine ==

== ENCOUNTER 2019-06-03 07:37 | Outpatient (CLI) | payer OTHER | END 2019-06-03 22:48 | disposition home or self-care (01) | LOC: LAB 07:37 | DX: Z79.899 Other long term (current) drug therapy (principal); Z79.01 Long term (current) use of anticoagulants | CPT/HCPCS: 85610 ==

== ENCOUNTER 2019-07-01 11:09 | Inpatient (IN) | payer OTHER | END 2019-08-01 11:11 | disposition still patient (30) | LOC: PAVB 11:09 | PROVIDERS: ADMIT Internal Medicine ==

== ENCOUNTER 2019-07-02 12:28 | Outpatient (CLI) | payer OTHER ==
[2019-07-02 12:58] LABS: PLATELET COUNT 186 K/uL (152-353)
== END 2019-07-02 23:45 | disposition home or self-care (01) ==
LOC: LAB 12:28
PROVIDERS: Internal Medicine
DX: Z79.899 Other long term (current) drug therapy (principal); Z51.81 Encounter for therapeutic drug level monitoring; R53.83 Other fatigue
CPT/HCPCS: 85027; 85610

== ENCOUNTER 2019-08-01 11:41 | Inpatient (IN) | payer OTHER | END 2019-08-31 08:00 | disposition still patient (30) | LOC: PAVB 11:41 | PROVIDERS: ADMIT Internal Medicine ==

== ENCOUNTER 2019-08-06 04:43 | Inpatient (IN) | payer OTHER ==
[~2019-08-06] VITALS: Ht 172.7 cm; Wt 95.0 kg
[2019-08-06 06:50] LABS: PLATELET COUNT 142 K/uL (152-353)
[2019-08-06 07:11] LABS: POTASSIUM 4.7 mmol/L (3.6-5.2)
[2019-08-06 12:00] VITALS: BP 146/57; TEMP 98.4
--- NOTE | 2019-08-06 13:00 | NUR ---
REPORT FROM JOSE RAUL DARDEN LPN @1245 @1300 PT ADMITTED TO ROOM 1114, BROUGHT TO FLOOR FROM [facility] BY W/C ACCOMPANIED BY STAFF, PT IS FULLY DRESSED, WEARING NASAL CANNULA WITH O2@2L, PT HAD NO C/O AT THIS TIME, COLOSTOMY TO RLQ ABDOMEN CLEAN, DRY AND INTACT, NO STOOL IN BAG, PT IS PLEASANT, COOPERATIVE, HARD OF HEARING AND HAS A VISION IMPAIRMENT, NO REDNESS OR BREAKDOWN TO SKIN. PT IS HERE FOR BLOOD TRANSFUSION. SR UP X2, BED IN LOW POSITION, O2@2L NC HOOKED UP TO PATIENT. PT RESTING QUIETLY IN BED. @1615 IV STARTED TO LEFT WRIST 20G X1 STICK, PT TOLERATED WELL @1630 1ST UNIT OF PRBC STARTED, VITAL SIGNS WNL, CHARTED ON BLOOD SHEET
[2019-08-06 16:00] VITALS: BP 128/58; TEMP 98.2
[2019-08-06 18:12] VITALS: BP 146/57; TEMP 98.4; Ht 172.7 cm; Wt 95.0 kg
[2019-08-06 20:00] VITALS: BP 132/67; TEMP 98.7
[2019-08-07] VITALS: BP 133/63; TEMP 98.5
[2019-08-07 04:00] VITALS: BP 138/68; TEMP 98.1
[2019-08-07 08:00] VITALS: BP 111/60; BP 138/78; TEMP 97.8; TEMP 98.2
[2019-08-07 12:00] VITALS: BP 150/72; TEMP 97.9
--- NOTE | 2019-08-07 12:33 | NUR ---
REPORT CALLED TO DARREN CARRILLO AT THIS TIME. IV D/C WITH TIP INTACT. NAD NOTED.
== END 2019-08-07 12:45 | DRG 812 ==
LOC: LAB 04:43 → MED/SURG 12:54
PROVIDERS: ADMIT Internal Medicine
PROC: 30233N1 Transfusion of Nonautologous Red Blood Cells into Peripheral Vein, Percutaneous Approach (ICD-10-PCS; principal; 2019-08-06)
PROC: 30233N1 Transfusion of Nonautologous Red Blood Cells into Peripheral Vein, Percutaneous Approach (ICD-10-PCS; 2019-08-07)
DX: D64.89 Other specified anemias (principal); K92.2 Gastrointestinal hemorrhage, unspecified; I12.0 Hypertensive chronic kidney disease with stage 5 chronic kidney disease or end stage renal disease; N18.5 Chronic kidney disease, stage 5; Z86.73 Personal history of transient ischemic attack (TIA), and cerebral infarction without residual deficits; J44.9 Chronic obstructive pulmonary disease, unspecified; R53.1 Weakness; E87.71 Transfusion associated circulatory overload
CPT/HCPCS: 80053; 82272; 82306; 85014; 85018; 85027; 85610; 86850; 86900; 86901; 86922; 94664; 94760; J1940; P9016

== ENCOUNTER 2019-08-07 19:42 | Outpatient (CLI) | payer OTHER | END 2019-08-07 20:38 | disposition home or self-care (01) | LOC: LAB 19:42 | DX: E87.71 Transfusion associated circulatory overload (principal); D64.89 Other specified anemias | CPT/HCPCS: 85014; 85018 ==

== ENCOUNTER 2019-08-14 04:43 | Outpatient (CLI) | payer OTHER ==
[2019-08-14 05:39] LABS: PLATELET COUNT 121 K/uL (152-353)
[2019-08-14 06:04] LABS: PARTIAL THROMBOPLASTIN TIME 32.1 SECONDS (24.5-33.6)
== END 2019-08-14 19:48 | disposition home or self-care (01) ==
LOC: LAB 04:43
PROVIDERS: Internal Medicine
DX: Z51.81 Encounter for therapeutic drug level monitoring (principal); Z01.818 Encounter for other preprocedural examination; J44.9 Chronic obstructive pulmonary disease, unspecified
CPT/HCPCS: 80053; 85027; 85610; 85730; 93005; 94664

== ENCOUNTER 2019-08-14 08:38 | Day surgery (SDC) | payer OTHER ==
[~2019-08-14] VITALS: Ht 30.5 cm; Wt 0.5 kg
== END 2019-08-14 14:30 ==
LOC: OR 08:38
PROC: 0DB68ZZ Excision of Stomach, Via Natural or Artificial Opening Endoscopic (ICD-10-PCS; principal; 2019-08-14)
PROC: 0D738ZZ Dilation of Lower Esophagus, Via Natural or Artificial Opening Endoscopic (ICD-10-PCS; 2019-08-14)
DX: K29.50 Unspecified chronic gastritis without bleeding (principal); K22.2 Esophageal obstruction; R13.19 Other dysphagia; K20.8 Other esophagitis; K44.9 Diaphragmatic hernia without obstruction or gangrene; Z51.81 Encounter for therapeutic drug level monitoring; Z01.818 Encounter for other preprocedural examination; J44.9 Chronic obstructive pulmonary disease, unspecified
CPT/HCPCS: 80053; 85027; 85610; 85730; 93005; 94664; J2001; J2704

== ENCOUNTER 2019-08-18 06:02 | Outpatient (CLI) | payer OTHER | END 2019-08-18 21:12 | disposition home or self-care (01) | LOC: LAB 06:02 | DX: Z51.81 Encounter for therapeutic drug level monitoring (principal) | CPT/HCPCS: 85610 ==

== ENCOUNTER 2019-08-31 11:11 | Inpatient (IN) | payer OTHER | END 2019-10-01 08:35 | disposition still patient (30) | LOC: PAVB 11:11 | PROVIDERS: ADMIT Internal Medicine ==

== ENCOUNTER 2019-09-03 04:56 | Outpatient (CLI) | payer OTHER | END 2019-09-03 20:43 | disposition home or self-care (01) | LOC: LAB 04:56 | DX: Z51.81 Encounter for therapeutic drug level monitoring (principal) | CPT/HCPCS: 36415; 85610 ==

== ENCOUNTER 2019-10-01 08:57 | Inpatient (IN) | payer OTHER | END 2019-11-01 09:57 | disposition still patient (30) | LOC: PAVB 08:57 | PROVIDERS: ADMIT Internal Medicine ==

== ENCOUNTER 2019-10-06 04:35 | Outpatient (CLI) | payer OTHER | END 2019-10-06 22:29 | disposition home or self-care (01) | LOC: LAB 04:35 | DX: D75.89 Other specified diseases of blood and blood-forming organs (principal); Z79.899 Other long term (current) drug therapy; Z79.01 Long term (current) use of anticoagulants | CPT/HCPCS: 85610 ==

== ENCOUNTER 2019-11-01 10:41 | Inpatient (IN) | payer OTHER ==
--- NOTE | 2019-11-24 11:08 | NUR ---
PATIENT ADMITTED AT 1050 FROM [place]. PATIENT HAD N/V ON ADMISSION 30CC YELLOW VOMIT. MD NOTIFIED. PATIENT STABLE WHEN ENTERED ROOM. RESP EVEN/UNLABORED. 25CC LOOSE YELLOW/BROWN BOWEL NOTED TO COLOSTOMY BAG WITH HERNIA BEHIND STOMA SITE. NG TUBE PLACED PER MD ORDER. 22G PLACED TO LEFT FOREARM.
[2019-11-25] MEDS ORDERED: ALLEGRA ALRG180 M1 PO ×2 (04:32)
[2019-11-25] MEDS ORDERED: CELEXA10 MG PO ×2 (04:34)
[2019-11-25] MEDS ORDERED: ALEN70TA19 PO ×2 (04:39)
[2019-11-25] MEDS ORDERED: MONT10TA PO ×2 (04:44)
[2019-11-25] MEDS ORDERED: CALCIUM 600+D31 TA2 PO ×2 (04:50)
[2019-11-25] MEDS ORDERED: NEURONTIN 100M100 MG PO ×2 (04:52)
[2019-11-25] MEDS ORDERED: PRESERVISION AREDS 2 PO ×2 (04:54)
[2019-11-25] MEDS ORDERED: OMEP40CA PO ×2 (04:57)
[2019-11-25] MEDS ORDERED: TYLENOL325 MG PR (05:03)
[2019-11-25] MEDS ORDERED: TYLENOL325 MG PO ×3 (05:05→05:07)
[2019-11-25] MEDS ORDERED: AZO CRANBERY UR1 CAP PO ×2 (05:37)
== END 2019-11-30 13:16 | disposition still patient (30) ==
LOC: PAVB 10:41
PROVIDERS: ADMIT Internal Medicine

== ENCOUNTER 2019-11-04 06:35 | Outpatient (CLI) | payer OTHER | END 2019-11-04 22:17 | disposition home or self-care (01) | LOC: LAB 06:35 | DX: Z51.81 Encounter for therapeutic drug level monitoring (principal) | CPT/HCPCS: 85610 ==

== ENCOUNTER 2019-11-22 11:23 | Emergency (ER) | payer OTHER ==
[~2019-11-22] VITALS: Ht 172.7 cm; Wt 94.8 kg
[2019-11-22 11:28] VITALS: TEMP 98.4
[2019-11-22 12:17] LABS: PLATELET COUNT 187 K/uL (152-353)
[2019-11-22 12:33] LABS: POTASSIUM 6.2 mmol/L (3.6-5.2)
[2019-11-22 15:38] LABS: POTASSIUM 5.5 mmol/L (3.6-5.2)
[2019-11-22 17:00] VITALS: BP 143/60
[2019-11-25] MEDS ORDERED: ALLEGRA ALRG180 M1 PO (04:32)
[2019-11-25] MEDS ORDERED: CELEXA10 MG PO (04:34)
[2019-11-25] MEDS ORDERED: ALEN70TA19 PO (04:39)
[2019-11-25] MEDS ORDERED: MONT10TA PO (04:44)
[2019-11-25] MEDS ORDERED: CALCIUM 600+D31 TA2 PO (04:50)
[2019-11-25] MEDS ORDERED: NEURONTIN 100M100 MG PO (04:52)
[2019-11-25] MEDS ORDERED: PRESERVISION AREDS 2 PO (04:54)
[2019-11-25] MEDS ORDERED: OMEP40CA PO (04:57)
[2019-11-25] MEDS ORDERED: TYLENOL325 MG PO ×2 (05:05→05:07)
[2019-11-25] MEDS ORDERED: AZO CRANBERY UR1 CAP PO (05:37)
== END 2019-11-22 17:00 | disposition home or self-care (01) ==
LOC: ED 11:23
PROVIDERS: Emergency Medicine
DX: E87.5 Hyperkalemia (principal); R10.84 Generalized abdominal pain; R11.2 Nausea with vomiting, unspecified; Z93.3 Colostomy status
CPT/HCPCS: 80048; 80053; 82150; 82962; 83690; 85027; 96360; 96375; 99284; J1815; J2405; J7060

== ENCOUNTER 2019-11-23 17:18 | Outpatient (CLI) | payer OTHER ==
[2019-11-25] MEDS ORDERED: ALLEGRA ALRG180 M1 PO (04:32)
[2019-11-25] MEDS ORDERED: CELEXA10 MG PO (04:34)
[2019-11-25] MEDS ORDERED: ALEN70TA19 PO (04:39)
[2019-11-25] MEDS ORDERED: MONT10TA PO (04:44)
[2019-11-25] MEDS ORDERED: CALCIUM 600+D31 TA2 PO (04:50)
[2019-11-25] MEDS ORDERED: NEURONTIN 100M100 MG PO (04:52)
[2019-11-25] MEDS ORDERED: PRESERVISION AREDS 2 PO (04:54)
[2019-11-25] MEDS ORDERED: OMEP40CA PO (04:57)
[2019-11-25] MEDS ORDERED: TYLENOL325 MG PO ×2 (05:05→05:07)
[2019-11-25] MEDS ORDERED: AZO CRANBERY UR1 CAP PO (05:37)
== END 2019-11-23 19:56 | disposition home or self-care (01) ==
LOC: LAB 17:18
DX: N39.0 Urinary tract infection, site not specified (principal); M54.5 Low back pain; N39.498 Other specified urinary incontinence
CPT/HCPCS: 81000

== ENCOUNTER 2019-11-24 10:50 | Inpatient (IN) | payer OTHER ==
[~2019-11-24] VITALS: Ht 172.7 cm; Wt 106.4 kg
--- NOTE | 2019-11-24 13:08 | NUR ---
PATIENT PULLED NG TUBE OUT X4 AFTER INSERTION AND MAX REDIRECTION. MD PENDLETON NOTIFIED. MD PENDLETON STATED DO NOT KEEP ATTEMPTING TO PUT NG TUBE IN IF PATIENT KEEPS TAKING IT OUT. IF PATIENT CONTINUES TO VOMIT AND THEN REQUESTS AN NG TUBE INSERTED, THEN NOTIFIY MD PENDLETON AND ATTEMPT REINSETION AGAIN. FAMILY AT BEDSIDE AND NOTIFIED OF MD VERBAL ORDERS. PATIENT NOT VOMITING AT THIS TIME. PATIENT RESTING IN BED WITH HOB ELEVATED RESP EVEN AND UNLABORED AFTER IV ATIVAN X1 DOSE AND PHENERGAN IV PRN GIVEN. FAMILY VOICED UNDERSTANDING. PATIENT STABLE AT THIS TIME. NAD NOTED. HERNIA AREA PALPATED AND SOFT AT THIS TIME. BOWEL SOUNDS ACTIVE X2 UPPER AND HYPOACTIVE X2 LOWER. STOMA TO LLQ DRAINING YELLOW BROWN VERY LIQUID STOOL 30CC NOTED. DAUGHTER AT BEDISDE.
--- NOTE | 2019-11-24 15:49 | NUR ---
NO VOMITUS NOTED AT THIS TIME. NO C/O NAUSEA EXPRESSED AT THIS TIME. RESP EVEN AND UNLABORED. RESTING INTERMITTENTLY WITH HOB ELEVATED. IVF INFUSING ORDERED INCLUDING ABT. 1-2 VIEW ABDOMEN FLAT UPRIGHT AND OF PELVIS TOVRB PER MD PENDLETON AND RADIOLOGY NOTIFIED.
[2019-11-24 20:00] VITALS: BP 141/80; TEMP 98
[2019-11-24 20:14] VITALS: BP 118/62; TEMP 98.4; Ht 172.7 cm; Wt 106.4 kg
[2019-11-25 00:16] VITALS: BP 137/80; TEMP 98.3
[2019-11-25 04:01] VITALS: BP 104/70; TEMP 98.3
[2019-11-25] MEDS ORDERED: ALLEGRA ALRG180 M1 PO ×2 (04:32)
[2019-11-25] MEDS ORDERED: CELEXA10 MG PO ×2 (04:34)
[2019-11-25] MEDS ORDERED: ALEN70TA19 PO ×2 (04:39)
[2019-11-25] MEDS ORDERED: MONT10TA PO ×2 (04:44)
[2019-11-25] MEDS ORDERED: CALCIUM 600+D31 TA2 PO ×2 (04:50)
[2019-11-25] MEDS ORDERED: NEURONTIN 100M100 MG PO ×2 (04:52)
[2019-11-25] MEDS ORDERED: PRESERVISION AREDS 2 PO ×2 (04:54)
[2019-11-25] MEDS ORDERED: OMEP40CA PO ×2 (04:57)
[2019-11-25] MEDS ORDERED: TYLENOL325 MG PR (05:03)
[2019-11-25] MEDS ORDERED: TYLENOL325 MG PO ×3 (05:05→05:07)
[2019-11-25] MEDS ORDERED: AZO CRANBERY UR1 CAP PO ×2 (05:37)
--- NOTE | 2019-11-25 07:36 | NUR ---
PT HAD NO NAUSEA OR VOMITING THIS SHIFT. BOWEL SOUNDS PRESENT.
[2019-11-25 08:00] VITALS: BP 128/68; TEMP 98.2
--- NOTE | 2019-11-25 09:34 | NUR ---
patient was admitted with abd pain, N/V, herniaa, bowel obstruction, AFTT, Anemia, CRF, weakness, dehydration, COPDm tibia and Fibula fx., elevated troponin and is allergic to iodine. 63" and IBW = 115+/-10% (103 to 127 lbs.) kcal for IBW X 25 = 1300, X 30 = 1600, X 35 = 1800, X 40 = 2100 KCAL/DAY, PROTEIN NEEDS X .8 TO 1.5 FOR IBW = 42 TO 78 GRAMS PER DAY AND FLUIDS FOR WEIGHT X 25 TO 30 (206.7 LBS) = 2300 TO 2800 ML/CC PER DAY BMI = 36.66 AND IS CLASS II OBESITY AND IS 180% IBW. Recommendations: 1-Increase foods high in Fe 2-Increase fluids as tolerated when off NPO 3-Advnace DERIAN d/t NPO 4-Independence food preferences and allergic to Iodine 5-Add a MVI 1 po q day-Adult FTT 6-OFFER A SUPPLEMENT IF EAT <75% OF MEALS
[2019-11-25 12:00] VITALS: BP 102/66; TEMP 98
[2019-11-25 16:00] VITALS: BP 138/75; TEMP 99.6
--- NOTE | 2019-11-25 19:39 | NUR ---
1844 PHUONG STANLEY CALLED AND INFORM/UPDATE GIVEN TO HER VIA PHONE ON PT. EXPLAINED TO HER DR SYLVESTER WAS CONSULTED AND ASKED FOR HER TO BE NOTIFIED FOR POSSIBLE SURGERY IN AM. NEW ORDERS REC'D FROM PHUONG WAITE FOR AM. REPORTED TO [facility]. [address] SYLVESTER CALLED AND INFORMED THAT PHUONG STANLEY WAS NOTIFIED AND WOULD SLEEP PT IN AM. WILL REPORT TO [facility]
[2019-11-25 20:00] VITALS: BP 111/68; TEMP 98.2
--- NOTE | 2019-11-25 20:26 | NUR ---
RESULTS OF ABD CT WAS REPORTED FROM [facility] RADIOLOGY. DR SYLVESTER AND DR PENDLETON WAS NOTIFIED. DR SYLVESTER INSTRUCTED THIS NURSE TO CONTACT ANAESTHESIOLOGY (PHUONG STANLEY) TO SEE IF SHE WOULD CONSULT WITH PATIENT IN THE AM. CHARGE NURSE COURT ESTEVEZ CONTACTED HER AND PHUONG STANLEY STATED, "THAT SHE WOULD SEE PATIENT IN THE AM. NEW ORDERS WERE RECEIVED AT THIS TIME FOR LABS. DR PENDLETON NOTIFIED OF THIS INFORMATION. PATIENT'S FAMILY ALSO INFORMED OF NEW INFORMATION. DR SYLVESTER ALSO ORDERED NG TUBE BE PUT BACK IN. THESE ORDERS WERE TURNED OVER TO SPANISH MEDICAL INTERPRETER NURSE YEIMI LIN.
[2019-11-26] VITALS (13 sets, daily range): BP systolic 74–141; BP diastolic 41–72; TEMP 97.7–98.8
[2019-11-26 06:11] LABS: PLATELET COUNT 180 K/uL (152-353)
[2019-11-26 06:21] LABS: POTASSIUM 4.6 mmol/L (3.6-5.2)
--- NOTE | 2019-11-26 08:00 | NUR ---
CONSENT FORM TAKEN TO PATIENTS ROOM, WHERE DAUGHTER SIGNES CONSENT FORM FOR PATIENT TO HAVE SURGERY TODAY.
--- NOTE | 2019-11-26 10:15 | NUR ---
PATIENT TAKEN VIA STRETCHER TO OR AT THIS TIME.
--- NOTE | 2019-11-26 18:00 | NUR ---
RECIEVED REPORT FROM PHUONG COVINGTON FROM OR. PATIENT ADMITTED TO ICU BED [address] SYLVESTER POST OP SMALL BOWEL OBSTRUCTION, HERNIA REPAIR, FORMATION STOMA. PATIENT PLACED ON MONITOR. HOB UP. NG TUBE TO INTERMITTENT LOW WALL SUCTION. NOTED VERY SMALL DRAINAGE IN TUBE ORAL SUCTION SMALL AMOUNT SECRETIONS ASSISTED PHUONG FLUSHED NG WITH 30 ML WATER AFTER CHECKING PLACEMENT RETURNED 150 ML YAÑEZ COLORED SECRETIONS. DRESSING TO ABD DRY CLEAN INTACT. COLOSTOMY INTACT CLEAN DRY NO BLEEDING NOTED.
--- NOTE | 2019-11-26 18:30 | NUR ---
NOTED THAT PATIENT WAS HAVING PERIODS OF APENA, CALLED TO RESP DEPT PLACED ON CO2 MONITOR CHANGED OVER TO NC AT 2L , CALLED TO PHUONG REPORT MEDS IN IN OR PATIENT HAD RECIEVED DILAUDID WHILE IN SURGERY. RESP 10 - 8 MIN 2-3 PERIODS OF APENA LASTING 20 SEC. TOUCHING TALKING TO PATIENT RESP PARCEL CONTRACTOR. O2 SAT 94 CO2 45 CHANGED FROM MASK TO NC. AT 2L HR 115 RESP DEPT AT BEDSIDE.
--- NOTE | 2019-11-26 19:04 | NUR ---
LABS DRAWN. X RAY HERE. RESP SOKE WITH Angel STANLEY CRNA, SANDRA ORDERED.
[2019-11-26 19:05] LABS: PLATELET COUNT 194 K/uL (152-353)
[2019-11-26 19:17] LABS: POTASSIUM 5.2 mmol/L (3.6-5.2)
--- NOTE | 2019-11-26 19:40 | NUR ---
CALLED REPORT TO DR SYLVESTER REPORT PATIENT CONDITION, LAB, ABD AND CHEST X RAY RESULTS. RECIEVED NEW ORDERS.
--- NOTE | 2019-11-26 20:39 | NUR ---
DAUGHTER AT BEDSIDE. PT CALM NOW. RESTING AND BREATHING MUCH IMRPOVED WITH NRB.
--- NOTE | 2019-11-26 21:34 | NUR ---
RESULTS BACK FROM LAB . HEMOGLOBIN 8.5 AND HEMATOCRIT 26.2. RESP HERE TO DRAW ABG.
--- NOTE | 2019-11-26 23:29 | NUR ---
CALLED DR. JACY SYLVESTER AND REPORTED HEMOGLOBIN OF 8.5. NEW ORDER RECEIVED FOR ALBUMIN 25 PERCENT. SMITH CATHETAR WAS CHECKED FOR PLACEMENT AND IRRIGATED. MONITORING URINE OUTPUT. DAUGHTER AT BEDSIDE.
[2019-11-27] VITALS (54 sets, daily range): BP systolic 60–150; BP diastolic 19–112; TEMP 96.8–98.4
--- NOTE | 2019-11-27 01:26 | NUR ---
NEW SMITH CATHETAR 16 VENEZUELAN INSERTED. O URINE OUTPUT. CHUX UNDERNEATH IS CLEAN AND DRY.
--- NOTE | 2019-11-27 04:56 | NUR ---
CALLED DR. Sue SYLVESTER AND REPORT PT'S STATUS. 50 ML OF URINE, BP 80/40, DOPAMINE INFUSING AT 10MCG/KG/HOUR. NEW ORDER FOR NS BOLUS 500 ML. DAUGHTER AT BEDSIDE. HR IS 123.
--- NOTE | 2019-11-27 04:59 | NUR ---
PHUONG STANLEY CRNA CALLED TO CHECK ON PATIENT. REPORT GIVEN.
--- NOTE | 2019-11-27 05:05 | NUR ---
JANUARY 11/27/2019 [address]PM [address]POKE WITH DR. SYLVESTER. REPORT NO URINE OUTPUT AND HYPOTENTION. HR IS 120'S. NEW ORDER GIVEN FOR DOPAMINE AND ALBUMIN.
--- NOTE | 2019-11-27 05:09 | NUR ---
11/27/2019 PT CONTINUES TO HAVE RHONCHI AND RALES. RECEIVING XOPENEX RESP TREATMENTS AND VENTI MASK AT 40 PERCENT O2. DAUGHTER AT BEDSIDE. THIS TIME IS 0030 AM. BP IS 85/50. PULSE OX IS 92 TO 100 PERCENT. DRESSING TO ABDOMEN IS CLEAN AND INTACT. HR IS 105. NO URINE OUTPUT. NG TUBE IS PATENT AND DRAINING GREEN STOMACH SECRETIONS TO CANNISTER.
--- NOTE | 2019-11-27 06:42 | NUR ---
LAB HERE TO DRAW BLOOD.
[2019-11-27 07:02] LABS: POTASSIUM 4.4 mmol/L (3.6-5.2)
[2019-11-27 07:15] LABS: PLATELET COUNT 141 K/uL (152-353)
--- NOTE | 2019-11-27 07:50 | NUR ---
DR SYLVESTER CALLED RECIEVED REPORT AM LABS. DR PENDLETON VISITED CHECKED PATIENT CHECKED AM LABS. RECIEVED NEW ORDERS. DAUGHTER AT BEDSIDE, PATIENT TURN AND REPOSITIONED IN BED HOB ELEVATED. WEARING NON REBREATHER MASK. DOPAMINE DRIP AT 1O MCG. NS AT 125. PATIENT RESTING WITH EYES CLOSED, WILL OPEN EYES WHEN NAME CALLED. GRUNTING AT TIMES, USING ACCESORY MUSCLES. O2 SAT 92%
--- NOTE | 2019-11-27 08:50 | NUR ---
DOPAMINE DRIP DOWN TO 8 MCG/KG/MIN. B/P 112/76. HR 114. DAUGHTER AT BEDSIDE RECIEVED ORDERS.
--- NOTE | 2019-11-27 11:26 | NUR ---
PATIENT A LITTLE RESTLESS IN BED TURNING FROM SIDE TO SIDE. RECIEVED MORPHINE 2 MG IVP. FIRST UNIT BLOOD STARTED.
--- NOTE | 2019-11-27 11:45 | NUR ---
DOPAMINE DOWN TO 4 MCG/KG/MIN. CONTINUES NO URINE OUTPUT. BLOOD INFUSION WITHOUT PROBLEMS. HOLDING NS WHILE BLOOD INFUSING PATIENT SOUNDS WET. LABORED BREATHING AT TIMES WEARING NON REBREATHER MASK HAD WEANED DOWN EARLIER TO 3.5 L NC PATIENT SAT 90% DID NOT JOE WELL RESP DISTRESS CHANGED BACK TO 100% NRM. SAT 98 NOW.
--- NOTE | 2019-11-27 13:30 | NUR ---
DR SYLVESTER HERE CHECKING PATIENT TALKING WITH DAUGHTER. REVIEWED LABS RECIEVED NEW ORDERS.
--- NOTE | 2019-11-27 14:15 | NUR ---
CHEST X RAY DONE. PATIENT CONTINUE TO BE RESTLESS TURNING SIDE TO SIDE IN BED. DAUGHTER HERE FOR VISIT. 25 ML URINE OUTPUT SO FAR THIS SHIFT.
--- NOTE | 2019-11-27 14:30 | NUR ---
EMPTIED 20 ML URINE FROM FOLY SPEC TO LAB FOR TEST ORDERED BY DR SYLVESTER.
--- NOTE | 2019-11-27 14:31 | NUR ---
TRANSFUSION COMPLETE AT NOTED TIME. NO REACTION NOTED. PATIENT IN STABLE CONDITION. FAMILY AT BEDSIDE.
--- NOTE | 2019-11-27 15:50 | NUR ---
SPOKE WITH DR PENDLETON ON PHONE REPORT PATIENT STATUS CURRENT CONDITION. . REPORT FIRST UNIT BLOOD INFUSED RECIEVED ORDER TO GIVE 40 LASIX AFTER FIRST UNIT MAY HOLD SECOND UNIT FOR NOW. PRBC'S
--- NOTE | 2019-11-27 16:00 | NUR ---
DR SYLVESTER VISITED AGAIN RECIEVED ORDERS. SPOKE WITH DR SYLVESTER ABOUT IV ACCESS, HARD TO MAINTAIN IV SITES PATIENT PULLING AT LINES WHEN TURNING. IV RIGHT WRIST LEAKING REMOVED CATH INTACT. RESTART IV LEFT UPPER ARM X 1 STICK ASSISTED BY ELVIRA LEE RN. NOTED BRUISES TO ARMS PATIENT ON BLOOD THINNERS.
--- NOTE | 2019-11-27 16:10 | NUR ---
RECIEVED CALL FROM DR SYLVESTER. RECIEVED ORDERS FOR MEDS AFTER LAB AND ABG RESULTS REPORTED. PATIENT CONTIUES RESTLESS AT TIME MOVED UP IN BED. CONSENT FOR LINE PLACEMENT SIGNED AND ON CHART.
--- NOTE | 2019-11-27 17:30 | NUR ---
LABS DRAWN RECIEVED BICARB ORDERED WILL REPEAT LABS AND ABG AT 8 PM.
--- NOTE | 2019-11-27 17:55 | NUR ---
NOTED BREATHING SEEMS TO HAVE SETTLED DOWN NOT IRREGULAR. DOPAMINE DRIP AT 6 MCG/KG/MIN. BLOOD PRESSURE HAS GOTTON LOWER SINCE PATIENT RECIEVED LASIX. WILL BOLUS 500 ML NS, SODIUM BICARB 2 AMP IN 1 LITER INFUSING AT 75 ML HR. WILL NOTIFY .
--- NOTE | 2019-11-27 19:14 | NUR ---
DR CROSS CALL RECIEVED UPDATE PATIENT CONDITION. RECIEVED NEW ORDERS.
--- NOTE | 2019-11-27 19:15 | NUR ---
DR PENDLETON CALLED RECIEVED UPDATE. REPORT PATIENT CONDITION RECENT LABS AND DR SYLVESTER'S ORDERS, RECIEVED NEW ORDERS.
--- NOTE | 2019-11-27 20:35 | NUR ---
DR. SYLVESTER PRESENT AND PT HAS BEEN INTUBATED. FAMILY IS PRESENT. CENTAL LINE HAS BEEN PLACED. WAITING FOR CHEST XRAY FOR CONFIRMATION,
--- NOTE | 2019-11-27 21:37 | NUR ---
DR. SYLVESTER PRESENT. LEVAPHED INCREASED TO 16 MCQ A MINUTE.
--- NOTE | 2019-11-27 22:17 | NUR ---
FAMILY AT BEDSIDE. PT IS ON VENTILATOR AND HR IS 121 BPM. SINUS TACH. NO URINE OUTPUT. BP IS 117/31.
[2019-11-27 22:19] LABS: PLATELET COUNT 130 K/uL (152-353)
--- NOTE | 2019-11-27 22:42 | NUR ---
UNABLE TO OBTAIN BLOOD CULTURE PERIPHERAL.
[2019-11-27 22:47] LABS: POTASSIUM 4.8 mmol/L (3.6-5.2)
--- NOTE | 2019-11-27 22:51 | NUR ---
CRITICAL LABS REPORTED. HEMOGLOBIN 6.6.
--- NOTE | 2019-11-27 23:48 | NUR ---
DAUGHTER AT BEDSIDE. CKMB ELEVATED.
--- NOTE | 2019-11-27 23:57 | NUR ---
PT IS FULL CODE STATUS. PT ON VENTILATOR. NOREPINEPHRINE DRIP INFUSING PER PROTOCAL. HR IS 125 SINUS TACH. O2 SAT IS 90 PERCENT. BP 166/79. BLAINE DRIP INFUSING PER PROTOCAL. NO URINE OUTPUT AFTER LASIX. DAUGHTER AT BEDSIDE.
[2019-11-28] VITALS (72 sets, daily range): BP systolic 10–116; BP diastolic 4–60; TEMP 97–102.6
--- NOTE | 2019-11-28 00:46 | NUR ---
LATE ENTRY 11/27/[address] SYLVESTER PRESENT. PT BEGAN TO HAVE HR 30-32 NOTED ON CM. EPINEPRHINE 1 MG IVP WAS GIVEN. NOREPINEPHRINE DRIP STARTED. HR INCREASED TO 142 AND BP IS 58/32. 20:05PM DR. SYLVESTER BEGAN CENTRAL LINE INSERTION PROCEDURE. 20:08PM BP 188/58 HR 142 RR. CELIO PACHECO RN CALLED PT'S DAUGHTER GEORGES TO INFORM HER OF CHANGE OF PATIENTS CONDITION. 20:12 BP 143/49 HR 132 RR 18. 20:15 PM BP 108/40 HR 123 AND RESP 18. 2019PM BP 114/39 HR 119 RR 14. 2022PM BP98/38 HR 119 RR 18. 2026PM BP 85/35 HR 118 RR 18. CENTRAL LINE INSERTION SUCCESSFUL TO PT'S LEFT NECK.
--- NOTE | 2019-11-28 01:40 | NUR ---
RESP ARE 28-30 PER MINUTE. MORPHINE SULFATE 1 MG IVSP GIVEN.
--- NOTE | 2019-11-28 02:17 | NUR ---
LATE ENTRY 11/27/2019 20:49PM NS SALINE BOLUS 2051PM BP 79/31 HR 120 RR 24 O2 [id number] 3 BP71/32 HR 120 RR26 02 SAT 100 8 BP 94/27 HR 120 RR 13 02 SAT 97 2102PM 84/39 HR 120 RR 19 20:37PM PT INTUBATED PER DR.J. SYLVESTER FIO2 IS 100PERCENT PEEP 5 RATE 18 ET TUBE SIZE IS 7.5 23 AT THE LIP. 20:45PM CXR DONE FOR PLACEMENT 21:05PM ATIVAN 0.5MG GIVEN PT RESTLESS FAMILY PRESENT. BLOOD DRAWN FOR NEW ORDERED LABS.
--- NOTE | 2019-11-28 04:14 | NUR ---
PT HAS BEEN RESTING. RESP ARE 26 PER MINUTE. O URINE OUTPUT. DAUGHTER AT BEDSIDE. DRESSING INTACT TO ABDOMEN. STOMA AREA CLEAN AND DRY. 2ND UNIT OF PRBCS STARTED.
[2019-11-28 05:34] LABS: PLATELET COUNT 154 K/uL (152-353)
[2019-11-28 05:58] LABS: POTASSIUM 4.9 mmol/L (3.6-5.2)
--- NOTE | 2019-11-28 07:15 | NUR ---
PT RESTING IN LF ,EYES CLOSED.BP 71/32,O2 SA 91%, HR 133,RESP RATE 28. PT ON VENT AC, TV 450, RATE 18, 100% FIO2, PEEP5. # 7.5 ET TUBE,23 AT LIP. SMITH TO BSD WITH YELLOW CLOUDY,< 10ML URINE IN SMITH BAG. IV NS AT 125 HANGING AT KVO, PRBC INFUSNG AT 100 ML/HR, LEVOPHED DRIP AT 60 ML/16 MCG PER MIN & NEOSYNEPHRINE DRIP INFUSING AT 9ML/HR, CONCENTRATION 0.02MG/ML. FAMILY AT BS.
--- NOTE | 2019-11-28 08:00 | NUR ---
2ND UNIT PRBC COMPLETED. DR VENU SYLVESTER IN TO SEE PT. ABD BANDAGE REMOVED. MIDLINE JOCELYNE CLEAN & DRY. SM AMT OF OLD BLOOD ON OLD BANDAGE. SITE WITH NO S/SX INFECTION. SL BRUISING TO R SIDE OF INCISION. SITE CLEANED WITH CHLOR- PREP, ABD APPLIED TO COVER SITE. DR BLU PENDLETON IN TO SEE PT. DAUGHTER AT BS.
--- NOTE | 2019-11-28 08:45 | NUR ---
DR VENU SYLVESTER BACK IN TO SEE PT WITH ORDER TO CHANGE IV FLUIDS.
--- NOTE | 2019-11-28 09:00 | NUR ---
DR BLU PENDLETON IN TO SEE PT. REPORTED TEMP 100.9 A. NEW ORDERS.
--- NOTE | 2019-11-28 09:51 | NUR ---
TEMP 100.9 A MEDICATED WITH TYLENOL 1000MG IVPB PER ORDER. PT RESTLESS MOVING HEAD & TRYING TO OPEN EYES. BP94/41, HR 136. MEDICATED WITH MORPHINE 1 MG SIVP AT 1000. DAUGHTER AT BS.
--- NOTE | 2019-11-28 10:24 | NUR ---
CALL TO DR BLU PENDLETON. TO DISCUSS ORDERS. TALKED WITH TRISH. DR PENDLETON TO CALL BACK. FAMILY AT . MOUTH CARE.RR RATE 25, CO2 27, BP 81/36.
--- NOTE | 2019-11-28 10:55 | NUR ---
DR BLU PENDLETON CALLED BACK WITH ORDERS TO INCREASED D51/2 NS TO 125 ML/HR. DR SYLVESTER HAS TALKED WITH DR EDUARDO ACE & HE HAS ACCEPTED PT. PT WILL CALL TO [facility] IN [place]. WILL CALL WITH A BED. DR PENDLETON CALLED TRANSFER CENTER.
--- NOTE | 2019-11-28 11:00 | NUR ---
R IJ CL SITE WITH OLD DRIED BLOOD UNDER TEGADERM. OLD BANDAGE REMOVED & SITE CARE PER ASCEPTIC TECHNIQUE.
--- NOTE | 2019-11-28 11:15 | NUR ---
CHITRA FROM [facility] CALLED & REQUESTED A FACE SHEET ON PT. NO ICU BED AT THIS TIME, 'WORKING ON IT', WILL CALL BACK WITH A A BED. DR BLU PENDLETON NOTIFIED. FAMILY/DAUGHTER NOTIFIED.
--- NOTE | 2019-11-28 12:34 | NUR ---
DR PENDLETON BACK IN TO SEE PT & SIGN TRANSFER PAPERS. [facility] NOTIFIED OF POTENTIAL TRANSFER. TO [facility].
--- NOTE | 2019-11-28 13:06 | NUR ---
CALL TO DR PENDLETON ABOUT QUESTIONABLE NEED FOR AN ABG. STATES' I DON'T GUESS SO, THEY WILL PROBABLY DO THAT WHEN SHE GETS TO [employer] [place]'. PT RESTING WITH EYES CLOSED. BP 84/34, HR 135,RR RATE 24, CO2 33.
--- NOTE | 2019-11-28 13:15 | NUR ---
CHITRA FROM TRANSFER CENTER CALLED WITH AN UPDATE, NO ROOM AT THIS TIME BUT HOPEFULLY ONE WILL BE AVAILABLE SOON.
--- NOTE | 2019-11-28 14:30 | NUR ---
PT RESTLESS TURNING HEAD MOVING HANDS, RR RATE UP TO 30. MEDICATED WITH MORPHINE 1MG SIVP PER DR'DS ORDER.
--- NOTE | 2019-11-28 15:21 | NUR ---
PT WITH ELEVATED TEMP 1O2.3 A. MEDICATED WITH IV [id number] IVPB. PER DR'S ORDERS.BP 91/38. TURNED PT GENTLY TO R SIDE. MEDICATED WITH COUMADIN 2MG CRUSHED & DOWN NGT. TUBE CLAMPED.
--- NOTE | 2019-11-28 15:58 | NUR ---
CALL TO TRANSFER CENTER PER COURT ESTEVEZ DIRECTOR OF STRATEGIC MARKETING NURSE.' RM STILL NOT AVAILABLE. WILL CALL BACK AT ABOUT 530PM'. RR RATE 24,O2 SAT 98%,BP 86/37.
--- NOTE | 2019-11-28 16:53 | NUR ---
DR MARISELA SYLVESTER BACK IN TO SEE PT. NEW ORDERS.
--- NOTE | 2019-11-28 17:05 | NUR ---
PT RESTLESS PULLING AY SERAFIN SOFT WRIST RESTRAINTS. RT AT , PT CHANGED TO SIMV PER LIZ SEXTON CIRCULAR KNITTER.
--- NOTE | 2019-11-28 17:10 | NUR ---
PT WITH HR 141, RESTLESS, MEDICATED WITH METOPROLOL 5 MG SIVP. HR DOWN TO 115 AFTER IVP.
[2019-11-28 17:25] LABS: POTASSIUM 5.2 mmol/L (3.6-5.2)
--- NOTE | 2019-11-28 17:47 | NUR ---
LABS. ABG,BMP CALLED TO DR THOMAS COVERING FOR DR BLU PENDLETON PER DR BLU PENDLETON. NEW ORDERS.
--- NOTE | 2019-11-28 20:42 | NUR ---
DR. GONZALES HERE AT BEDSIDE TALKING WITH DAUGHTER. DAUGHTER STATES SHE WANTS EVERYTHING DONE FOR HER MOTHER. DR GONZALES NOTIFIED DAUGHTER OF JYOTI REFUSAL OF PT DUE TO POOR PROGNOSIS AND RISK WITH TRANSFER. NEW ORDERS FOR ALBUMIN AND LASIX SEE ORDERS.
[2019-11-28 21:20] LABS: POTASSIUM 5.1 mmol/L (3.6-5.2)
[2019-11-28 21:21] LABS: PLATELET COUNT 132 K/uL (152-353)
[2019-11-29] VITALS (50 sets, daily range): BP systolic 94–143; BP diastolic 36–79; TEMP 100.2–100.5
--- NOTE | 2019-11-29 04:37 | NUR ---
11/28/19 @ 220 NOTIFIED BY BED PLACEMENT IN [place] [place] NO AVAILABLE BEDS AT THIS TIME WILL CALL BACK IN AM AT 9 TO LET US KNOW THE STATUS. 11/28/19 @ 2300 FLUSHED NGT WITH 60 CC WATER RECONNECTED TO LIS MOUTH CARE PREFORMED PT GRIMACED WHEN SUCTIONED. SMALL AMT OF YELLOW MUCUS SUCTIONED FROM BACK OF THROAT. 11/29/19 @ 0200 MOUTH CARE PREFORMED NO MUCUS AT THIS TIME NOTED IN SUCTION PT CLOSED MOUTH AROUND YANKER AND GRIMACED AT SUCTION.
--- NOTE | 2019-11-29 07:00 | NUR ---
PT RESTING ON L SIDE. HOB UP IN LF.COLOR PINK, SKIN W& D, RESP SHALLOW RATE 16, O2 SAT 99%.PT ON VENT SIMVMODE, RATE 16,FIO2 100%, TV 450,PEEP 6. 7.5 ET TUBE,23 @ THE LIP. PT CALM WITH NO GRIMACING OR RESTLESSNESS. FROWNS WITH MOUTHCARE. SMITH TO BSD WITH DK TEA COLORED URINE < 10 ML IN BAG. CENTRAL LINE INTACT R IJ. MIDLINE ABD WOUND WITH JOCELYNE INTACT, CLEAN & DRY, NO S/SX INFECTION. R LOWER ABD WITH COLOSTOMY WITH DK BLOODY DRAINAGE, SM AMT. ABD R SIDE OF STOMA FIRM. ABD UPPER & L SOFT.DAUGHTER AT BS.
--- NOTE | 2019-11-29 08:30 | NUR ---
CARLOS CALLED FROM TRANSFER CENTER 'STILL WAITING ON A BED AT [facility], WILL BACK BY 7PM TONIGHT UNLESS SOMETHING COMES AVAILSBLE BEFORE.'
--- NOTE | 2019-11-29 09:25 | NUR ---
DR VENU SYLVESTER IN WOOD SEE PT. CHECKED PT'S INCISION SITE & ABD. NEW ORDERS.
--- NOTE | 2019-11-29 09:33 | NUR ---
RT HERE FOR ABG DRAW, LAB HERE FOR LAB DRAW, RADIOLOGY HERE FOR CXR.
--- NOTE | 2019-11-29 09:45 | NUR ---
FIO2 DECREASED TO 60%, PEEP DECREASED TO 5 PER RT. PT RESTING IN LF, HOB UP.
[2019-11-29 09:50] LABS: PLATELET COUNT 124 K/uL (152-353)
[2019-11-29 09:57] LABS: POTASSIUM 5.3 mmol/L (3.6-5.2)
--- NOTE | 2019-11-29 10:00 | NUR ---
PT WITH BP 133/54, HR 114,O2 SAT 16, NEOSYNEPHRINE DRIP 0.02MG/ML DECREASED TO 8 ML/HR.
--- NOTE | 2019-11-29 10:55 | NUR ---
DR GONZALES HAS ACCEPTD PT PER DR Chet THOMAS.
--- NOTE | 2019-11-29 11:00 | NUR ---
CVP LINE CONNECTED.27 ON MONITOR.
--- NOTE | 2019-11-29 11:02 | NUR ---
EDUARDO FROM [facility] CALLED, DR COHEN HAS ACCEPTED PT.REQUESTING DEMOGRAPHICS ON PT. DAUGHTER NOTIFIED & IS OK WITH TRANSFER TO [place].
--- NOTE | 2019-11-29 11:08 | NUR ---
EDUARDO IN [facility] CALLED BACK WITH A BED #1429 CCU.DAUGHTER NOTIFIED THAT WE HAVE A BED.
--- NOTE | 2019-11-29 11:21 | NUR ---
[facility] NOTIFIED OF NEED FOR TRANSPORT PER KASSI HENNESSY RN/ER.
--- NOTE | 2019-11-29 11:30 | NUR ---
BP 120/55 HR 119, O2 SAT 93%. NEOSYNEPHRINE DRIP DECREASED TO 7ML/HR, CONCENTRATION 0.02 MG/ML.
--- NOTE | 2019-11-29 11:35 | NUR ---
REPORT CALLED TO BIANCA MOLINA RN AT [facility].
--- NOTE | 2019-11-29 11:55 | NUR ---
PT WITH T 100.2 A. TYLENOL IV 100MG HUNG AT 1200, [facility] HERE AT 1157. FAMILY HERE & AWARE.
--- NOTE | 2019-11-29 12:19 | NUR ---
PATIENT DAUGHTER DISCUSSING A [facility] ONCE PATIENT IS DISCHARGED FROM THE HOSPITAL.
--- NOTE | 2019-11-29 12:38 | NUR ---
PT TO [facility] STRETCHER, PLACED ON [facility] VENT. V/S 120/79, HR122,RR 16 O2 SAT 94%.
--- NOTE | 2019-11-29 12:45 | NUR ---
BP 117/59, HR 121,RR 16,O2 SAT98%. PT OVER BREATHING VENT. MEDICATED WITH KETAMINE 100MG PER [facility] CREW. PT D/C STABLE VIA STRETCHER TO WAITING [facility] TRANSPORT. FAMILY HERE & AWARE.
== END 2019-11-29 12:45 | disposition short-term general hospital (02) | DRG 335 ==
LOC: MED/SURG 10:50 → ICU 11-26 17:30
PROVIDERS: Student in an Organized Health Care Education/Training Program; ADMIT Internal Medicine
PROC: 0DN80ZZ Release Small Intestine, Open Approach (ICD-10-PCS; 2019-11-26)
PROC: 0WQF0ZZ Repair Abdominal Wall, Open Approach (ICD-10-PCS; 2019-11-26)
PROC: 0WUF0JZ Supplement Abdominal Wall with Synthetic Substitute, Open Approach (ICD-10-PCS; 2019-11-26)
PROC: 30233K1 Transfusion of Nonautologous Frozen Plasma into Peripheral Vein, Percutaneous Approach (ICD-10-PCS; 2019-11-26)
PROC: 5A1945Z Respiratory Ventilation, 24-96 Consecutive Hours (ICD-10-PCS; principal; 2019-11-27)
PROC: 0BH17EZ Insertion of Endotracheal Airway into Trachea, Via Natural or Artificial Opening (ICD-10-PCS; 2019-11-27)
PROC: 30243N1 Transfusion of Nonautologous Red Blood Cells into Central Vein, Percutaneous Approach (ICD-10-PCS; 2019-11-27)
PROC: 05HM33Z Insertion of Infusion Device into Right Internal Jugular Vein, Percutaneous Approach (ICD-10-PCS; 2019-11-27)
PROC: B543ZZA Ultrasonography of Right Jugular Veins, Guidance (ICD-10-PCS; 2019-11-27)
PROC: 30243N1 Transfusion of Nonautologous Red Blood Cells into Central Vein, Percutaneous Approach (ICD-10-PCS; 2019-11-28)
DX: K43.3 Parastomal hernia with obstruction, without gangrene (principal); J18.8 Other pneumonia, unspecified organism; N17.9 Acute kidney failure, unspecified; I12.0 Hypertensive chronic kidney disease with stage 5 chronic kidney disease or end stage renal disease; N18.5 Chronic kidney disease, stage 5; N17.8 Other acute kidney failure; K56.50 Intestinal adhesions [bands], unspecified as to partial versus complete obstruction; K43.0 Incisional hernia with obstruction, without gangrene; E83.51 Hypocalcemia; D64.89 Other specified anemias; J44.9 Chronic obstructive pulmonary disease, unspecified; G30.8 Other Alzheimer's disease; F02.80 Dementia in other diseases classified elsewhere, unspecified severity, without behavioral disturbance, psychotic disturbance, mood disturbance, and anxiety; M15.8 Other polyosteoarthritis; I48.91 Unspecified atrial fibrillation; Z86.73 Personal history of transient ischemic attack (TIA), and cerebral infarction without residual deficits
CPT/HCPCS: 31500; 36415; 36600; 80048; 80053; 82330; 82550; 82553; 82805; 83605; 83735; 83880; 84100; 84484; 84540; 85007; 85014; 85018; 85027; 85610; 86850; 86900; 86901; 86922; 87040; 87070; 87205; 93005; 94003; 94640; 94664; 94760; J1956; A4377; C1781; J0132; J0171; J0330; J0610; J1100; J1170; J1200; J1265; J1335; J1650; J1940; J2001; J2060; J2250; J2270; J2310; J2405; J2550; J2710; J2765; J2930; J3010; J3490; P9016; P9017; P9047

== ENCOUNTER 2019-11-30 14:05 | Inpatient (IN) | payer OTHER ==
[~2019-11-30 14:05] MED LIST changes: +ALEN70TA19 PO; +ALLEGRA ALRG180 M1 PO; +AZO CRANBERY UR1 CAP PO; +CALCIUM 600+D31 TA2 PO; +CELEXA10 MG PO; +MONT10TA PO; +PRESERVISION AREDS 2 PO; +TYLENOL325 MG PO; +TYLENOL325 MG PR
== END 2019-11-30 14:06 | disposition expired ==
LOC: PAVB 14:05
PROVIDERS: ADMIT Internal Medicine
CPT/HCPCS: J3490